=== PATIENT | female | born 1975 | race Caucasian/White ===

== ENCOUNTER → 2017-04-25 | Outpatient (CLI) | payer OTHER ==
[2017-04-25 15:37] VITALS: BP 121/65; PULSE 75; RESP 16; TEMP 98.5; BMI 40.6
[2017-04-25 17:45] LABS: CH 29.1; CHCM 33.9; HCT 45.3 % (34.0-46.0); HDW 2.42; HGB 15.1 gm/dL (11.4-16.0); MCH 28.7 pg (25.0-35.0); MCHC 33.3 g/dL (31.0-37.0); MCV 86.3 fL (80.0-100.0); Mean Platelet Volume 8.5; RBC 5.26 m/uL (3.80-5.40); RDW 13.9 % (11.5-15.5); WBC 9.3 k/uL (3.8-10.6)
[2017-04-25 17:51] LABS: INR 1.1 (<1.2); Partial Thromboplastin Time 23.7 sec (22.0-30.0); Prothrombin Time 10.7 sec (9.0-12.0)
[2017-04-25 17:59] LABS: ALT 75 U/L (9-52); AST 51 U/L (14-36); Alkaline Phosphatase 57 U/L (38-126); Anion Gap 11 mmol/L; Blood Urea Nitrogen 7 mg/dL (7-17); Calcium 9.8 mg/dL (8.4-10.2); Carbon Dioxide 26 mmol/L (22-30); Chloride 104 mmol/L (98-107); Cholesterol 150 mg/dL (<200); Glucose 157 mg/dL (74-99); HDL Cholesterol 42 mg/dL (40-60); Iron 57 ug/dL (37-170); Magnesium 1.7 mg/dL (1.6-2.3); Non-African American GFR(MDRD) >60 (>60 ml/min/1.73 sqM); Phosphorous 4.4 mg/dL (2.5-4.5); Potassium 4.4 mmol/L (3.5-5.1); Sodium 141 mmol/L (137-145); Total Bilirubin 0.6 mg/dL (0.2-1.3); Total Protein 7.6 g/dL (6.3-8.2)
[2017-04-25 18:08] LABS: % Iron Saturation 15.1 % (20-50); Total Iron Binding Capacity 377 ug/dL (265-497)
[2017-04-25 18:46] LABS: Vitamin B12 336 pg/mL (239-931)
--- NOTE | 2017-04-26 08:54 | P.PN ---
Progress Note - Text DATE OF CONSULTATION: 04/26/2017 DATE OF SERVICE: 04/26/2017 CHIEF COMPLAINT: History of complications from adjustable gastric band and cholecystitis. HISTORY OF PRESENT ILLNESS: Annamaria Pham is a 41-year-old female who reports having an adjustable gastric band placed in 2007 at [place]. Her highest weight for her 5 foot 5.5 inch frame was 314 pounds. She was able to get down to 212 pounds. She then followed up at [place] 3 years ago in 2013, and has developed problems. She also reports having a fill in the last 3 years. In the last 1 month, she reports difficulty with drinking fluids. She reports pain at her adjustable gastric port site which has become worse. She now presents with troubles with eating food including dysphagia to solids. Despite previous weight loss her diabetes is now progressed to insulin-dependent within the last 6 months. She has restricted her diet to gluten-free as her child has trouble with food ALLERGIES. She has changed her diet to include vegan as well alongside her daughter. Despite adjustment of her diet, she has regained weight of over 30 pounds. She also reports having obstructive sleep apnea. She has developed worsening right upper quadrant abdominal pain including epigastric abdominal pain. She had additional diagnostic studies demonstrating cholecystitis. She report seeing two separate general surgeons who has declined operating on her she as she is a bariatric patient. Her abdominal pain has now become from moderate to severe. She has developed intractable vomiting. She has gone to the ER several times in the last 1 month. Now she presents for surgical intervention for removal of her gallbladder including her adjustable gastric band from severe complications. PAST MEDICAL HISTORY: 1. Super morbid obesity. 2. Depression. 3. Chronic obstructive pulmonary disease. 4. Hypertension. 5. Panniculitis. 6. Sleep apnea, untreated. 7. Diabetes type 2, insulin-dependent. PAST SURGICAL HISTORY: 1. . 2. Cholecystectomy. MEDICATIONS: 1. Multivitamin. 2. Motrin. 3. Ultram. 4. Effexor. 5. Singulair. 6. Lasix. 7. Vitamin D. 8. Ativan. 9. Amiodarone. ALLERGIES: Denies. SOCIAL HISTORY: No active alcohol use. She is a former tobacco user. FAMILY HISTORY: Pertinent for diabetes including morbid obesity. REVIEW OF SYSTEMS: CONSTITUTIONAL: Highest weight of 314 pounds for a 5'5.5 frame. Lowest weight was 212 pounds after adjustable gastric band. She has 30+ pound weight gain of the last several years. MUSCULOSKELETAL: Bilateral ankle swelling including diffuse joint stiffness and lower back pain. RESPIRATORY: Reports chest pain including shortness of breath. GI: Nausea and vomiting, including pain after fatty greasy foods, including changes in bowel habits and diarrhea. NEUROLOGICAL: Headaches without seizure disorder. ENDOCRINE: Diabetes, now insulin dependent. No reports of thyroid disorders. HEENT: No reports of troubles with vision or wears glasses. LYMPHATIC: The patient denies any lumps and bumps around the neck. CARDIOVASCULAR: Denies any chest pain, palpitations, or recent heart attacks. GENITOURINARY: Denies any blood in urine or increased urinary frequency. PSYCHIATRIC: Denies any depression or suicidal ideation. HEMATOLOGIC: Denies any abnormal bleeding or bruising. BREASTS: Denies any breast lumps, pain or nipple discharge. SKIN: Has chronic panniculitis. No history of skin cancer. PHYSICAL EXAM: Patient is a 41-year-old female. Vital signs: Ht: 5' 5.5", Wt: 248 lbs, BMI 40.7. Vital Signs 04/25/17 15:32 Temperature 98.5 F Pulse Rate 75 Respiratory 16 Rate Blood Pressure 121/65 ABDOMEN: Tenderness noted along the left upper quadrant over adjustable gastric band port. Tenderness along the right upper quadrant. GENERAL: Well developed and in some distress. HEENT: No sclera icterus. Extraocular movements grossly intact. Moist buccal mucosa. Head is atraumatic, normocephalic. Hears conversational speech. No nasal drainage. NECK: Supple without lymphadenopathy. No JV distention. CHEST: Non-labored respirations and equal bilateral excursions. CARDIOVASCULAR: Regular rate and rhythm. Palpable 2+ radial pulses. MUSCULOSKELETAL: No clubbing, cyanosis or edema. NEUROLOGIC: No focal or lateralizing signs. Cranial nerves II-12 grossly within normal limits. PSYCH: Appropriate affect. Alert and oriented to person, place and time. SKIN: Has panniculitis. Well-perfused. EKG is pending. ASSESSMENT: 1. Morbid obesity due to excess calories. 2. BMI 40.7 3. History of adjustable gastric band, now with complications. 4. Elevated liver enzymes. 5. Symptomatic cholelithiasis. 6. Chronic cholecystitis. 7. Hypercholesterolemia. 8. Insulin dependent diabetes type 2. 9. Fibromyalgia. 10. Diffuse osteoarthritis. 11. Panniculitis. PLAN: 1. She reports having dysphagia to liquids, where she may have slippage of her adjustable gastric band or erosion. As her abdominal pain is worsening, urgent surgical intervention band removal is advised. 2. As she reports troubles also with her port and pain, removal of adjustable gastric band and all components is advised. 3. She has elevated liver enzymes and history of cholecystitis, recommend laparoscopic cholecystectomy. 4. DVT prophylaxis. 5. Antibiotics prophylaxis. 6. Start her abdominal pain worsen, emergent removal of her adjustable gastric band alongside her gallbladder is advised. 7. Immediate bariatric metabolic panel also advised. Thank you very much for this kind consultation.
[2017-05-02 18:31] LABS: Selenium 134 mcg/L (63-160)
== END | disposition home or self-care (01) ==
LOC: BARWHC3 14:48
PROVIDERS: ATTEND Surgery Plastic and Reconstructive Surgery
DX: K95.09 Other complications of gastric band procedure (principal); R74.8 Abnormal levels of other serum enzymes; K80.10 Calculus of gallbladder with chronic cholecystitis without obstruction; E78.00 Pure hypercholesterolemia, unspecified; M79.7 Fibromyalgia; M19.90 Unspecified osteoarthritis, unspecified site; M79.3 Panniculitis, unspecified; G47.30 Sleep apnea, unspecified; F32.9 Major depressive disorder, single episode, unspecified; I10 Essential (primary) hypertension; E66.01 Morbid (severe) obesity due to excess calories; Z68.41 Body mass index [BMI] 40.0-44.9, adult; E11.9 Type 2 diabetes mellitus without complications; Z79.4 Long term (current) use of insulin; E21.1 Secondary hyperparathyroidism, not elsewhere classified; E89.1 Postprocedural hypoinsulinemia; D50.8 Other iron deficiency anemias; K90.89 Other intestinal malabsorption; E55.9 Vitamin D deficiency, unspecified; K76.9 Liver disease, unspecified; N19 Unspecified kidney failure; K50.90 Crohn's disease, unspecified, without complications; Z79.1 Long term (current) use of non-steroidal anti-inflammatories (NSAID); Z79.899 Other long term (current) drug therapy
CPT/HCPCS: 80053; 80061; 82306; 82525; 82607; 82728; 82746; 83540; 83550; 83735; 83970; 84100; 84134; 84255; 84425; 84443; 84590; 84630; 85027; 85610; 85730; 99201

== ENCOUNTER 2017-04-27 11:56 | Day surgery (SDC) | payer OTHER ==
[2017-04-26 13:02] VITALS: BMI 39.6
--- NOTE | 2017-04-27 07:51 | P.GSHP ---
History of Present Illness H&P Date: 04/27/17 CHIEF COMPLAINT: History of complications from adjustable gastric band and cholecystitis. HISTORY OF PRESENT ILLNESS: Annamaria Pham is a 41-year-old female who reports having an adjustable gastric band placed in 2007 at [place]. Her highest weight for her 5 foot 5.5 inch frame was 314 pounds. She was able to get down to 212 pounds. She then followed up at [facility] 3 years ago in 2013, and has developed problems. She also reports having a fill in the last 3 years. In the last 1 month, she reports difficulty with drinking fluids. She reports pain at her adjustable gastric port site which has become worse. She now presents with troubles with eating food including dysphagia to solids. Despite previous weight loss her diabetes is now progressed to insulin-dependent within the last 6 months. She has restricted her diet to gluten-free as her child has trouble with food ALLERGIES. She has changed her diet to include vegan as well alongside her daughter. Despite adjustment of her diet, she has regained weight of over 30 pounds. She also reports having obstructive sleep apnea. She has developed worsening right upper quadrant abdominal pain including epigastric abdominal pain. She had additional diagnostic studies demonstrating cholecystitis. She report seeing two separate general surgeons who has declined operating on her she as she is a bariatric patient. Her abdominal pain has now become from moderate to severe. She has developed intractable vomiting. She has gone to the ER several times in the last 1 month. Now she presents for surgical intervention for removal of her gallbladder including her adjustable gastric band from severe complications. PAST MEDICAL HISTORY: 1. Super morbid obesity. 2. Depression. 3. Chronic obstructive pulmonary disease. 4. Hypertension. 5. Panniculitis. 6. Sleep apnea, untreated. 7. Diabetes type 2, insulin-dependent. PAST SURGICAL HISTORY: 1. . 2. Cholecystectomy. MEDICATIONS: 1. Multivitamin. 2. Motrin. 3. Ultram. 4. Effexor. 5. Singulair. 6. Lasix. 7. Vitamin D. 8. Ativan. 9. Amiodarone. ALLERGIES: Denies. SOCIAL HISTORY: No active alcohol use. She is a former tobacco user. FAMILY HISTORY: Pertinent for diabetes including morbid obesity. REVIEW OF SYSTEMS: CONSTITUTIONAL: Highest weight of 314 pounds for a 5'5.5 frame. Lowest weight was 212 pounds after adjustable gastric band. She has 30+ pound weight gain of the last several years. MUSCULOSKELETAL: Bilateral ankle swelling including diffuse joint stiffness and lower back pain. RESPIRATORY: Reports chest pain including shortness of breath. GI: Nausea and vomiting, including pain after fatty greasy foods, including changes in bowel habits and diarrhea. NEUROLOGICAL: Headaches without seizure disorder. ENDOCRINE: Diabetes, now insulin dependent. No reports of thyroid disorders. HEENT: No reports of troubles with vision or wears glasses. LYMPHATIC: The patient denies any lumps and bumps around the neck. CARDIOVASCULAR: Denies any chest pain, palpitations, or recent heart attacks. GENITOURINARY: Denies any blood in urine or increased urinary frequency. PSYCHIATRIC: Denies any depression or suicidal ideation. HEMATOLOGIC: Denies any abnormal bleeding or bruising. BREASTS: Denies any breast lumps, pain or nipple discharge. SKIN: Has chronic panniculitis. No history of skin cancer. PHYSICAL EXAM: Patient is a 41-year-old female. Vital signs: Ht: 5' 5.5", Wt: 248 lbs, BMI 40.7. Stable ABDOMEN: Tenderness noted along the left upper quadrant over adjustable gastric band port. Tenderness along the right upper quadrant. GENERAL: Well developed and in some distress. HEENT: No sclera icterus. Extraocular movements grossly intact. Moist buccal mucosa. Head is atraumatic, normocephalic. Hears conversational speech. No nasal drainage. NECK: Supple without lymphadenopathy. No JV distention. CHEST: Non-labored respirations and equal bilateral excursions. CARDIOVASCULAR: Regular rate and rhythm. Palpable 2+ radial pulses. MUSCULOSKELETAL: No clubbing, cyanosis or edema. NEUROLOGIC: No focal or lateralizing signs. Cranial nerves II-12 grossly within normal limits. PSYCH: Appropriate affect. Alert and oriented to person, place and time. SKIN: Has panniculitis. Well-perfused. EKG is pending. ASSESSMENT: 1. Morbid obesity due to excess calories. 2. BMI 40.7 3. History of adjustable gastric band, now with complications. 4. Elevated liver enzymes. 5. Symptomatic cholelithiasis. 6. Chronic cholecystitis. 7. Hypercholesterolemia. 8. Insulin dependent diabetes type 2. 9. Fibromyalgia. 10. Diffuse osteoarthritis. 11. Panniculitis. PLAN: 1. She reports having dysphagia to liquids, where she may have slippage of her adjustable gastric band or erosion. As her abdominal pain is worsening, urgent surgical intervention band removal is advised. 2. As she reports troubles also with her port and pain, removal of adjustable gastric band and all components is advised. 3. She has elevated liver enzymes and history of cholecystitis, recommend laparoscopic cholecystectomy. 4. DVT prophylaxis. 5. Antibiotics prophylaxis. 6. Robotic-assisted approach reviewed. Past Medical History Past Medical History: COPD, Diabetes Mellitus, Fibromyalgia, Hyperlipidemia, Osteoarthritis (OA) Additional Past Medical History / Comment(s): Fatty liver disease, Arthritis in bilateral hips and knees History of Any Multi-Drug Resistant Organisms: None Reported Past Surgical History: Appendectomy, Bariatric Surgery, Section, Hernia Repair, Hysterectomy, Orthopedic Surgery, Uterine Ablation Additional Past Surgical History / Comment(s): Arthroscopic Left knee x4, Laparoscopies x6 (d/t hx of ovarian cysts, ovarian mass, endometriosis) Bilateral inguinal hernia repair, Bilateral Carpal Tunnel, Bilateral "Diabetic frozen shoulder surgery", Jaw wired d/t fracture in 3 locations. Past Anesthesia/Blood Transfusion Reactions: Postoperative Nausea & Vomiting ( PONV) Additional Past Anesthesia/Blood Transfusion Reaction / Comment(s): States it is hard for her to wake up afterwards. Blood transusion x2 (No reaction reported) Smoking Status: Never smoker - Past Family History Mother Family Medical History: COPD, Diabetes Mellitus, Neurologic Disorder Additional Family Medical History / Comment(s): Early onset Parkinsons Disease Brother(s) Family Medical History: No Reported History Additional Family Medical History / Comment(s): Brothers x 7 (no hx reported) Father History Unknown: Yes Medications and Allergies Home Medications Medication Instructions Recorded Confirmed Type Cholecalciferol (Vitamin D3) 10,000 unit PO Q48H 04/25/17 04/26/17 History [Vitamin D3] Ferrous Sulfate [Iron] 325 mg PO DAILY 04/25/17 04/26/17 History Gabapentin [Neurontin] 600 mg PO TID 04/25/17 04/26/17 History Insulin Degludec [Tresiba 8 unit SQ HS 04/25/17 04/26/17 History Flextouch U-100] Rosuvastatin [Crestor] 10 mg PO HS 04/25/17 04/26/17 History glyBURIDE/METFORMIN HCL 2 tab PO BID 04/25/17 04/26/17 History [Glucovance 2.5-500 mg Tablet] Tiotropium Palisade [Spiriva 1 spray INHALATION DAILY 04/26/17 04/26/17 History Respimat] Allergies Allergy/AdvReac Type Severity Reaction Status Date / Time aspirin Allergy Anaphylaxis Verified 04/26/17 12:53 hydrocodone [From Vicodin] Allergy Rash/Hives Verified 04/26/17 12:53 ibuprofen [From Motrin] Allergy Anaphylaxis Verified 04/26/17 12:53 meperidine [From Demerol] Allergy Rash/Hives Verified 04/26/17 12:53 morphine Allergy Rash/Hives Verified 04/26/17 12:53
[~2017-04-27 11:56] MED LIST: ACETAMINOPHEN IV (For NPO) 1,000 MG in EMPTY BAG 1 BAG IVPB ONE; ACETAMINOPHEN TAB 500 MG TAB PO ONE; CHLORHEXIDINE GLUCONATE 15 ML CUP MUCOUS MEM ONE; DEXAMETHASONE SOD PHOSPHATE 10 MG/ML 1 ML VIAL IV ONE; ENOXAPARIN 40 MG/0.4 ML SYRINGE SQ STA; HEPARIN SODIUM,PORCINE 5,000 UNIT/ML 1 ML VIAL SQ ONE; LACTATED RINGERS 1,000 ML IV SCH; MIDAZOLAM 2 MG/2 ML VIAL IV PRN; ONDANSETRON 4 MG/2 ML VIAL IVP ONE; PANTOPRAZOLE 40 MG/10 ML VIAL IV STA; SCOPOLAMINE 1.5MG/72HR PATCH TRANSDERM ONE; SCOPOLAMINE 1.5MG/72HR PATCH TRANSDERM STA; ceFAZolin 2 GM in SODIUM CHLORIDE 0.9% 100 ML IVPB ONE; ceFAZolin 2 GM in SODIUM CHLORIDE 0.9% 100 ML IVPB STA; fentaNYL (PF) 50 MCG/ML 2 ML AMP IV PRN
[2017-04-27 12:48] LABS: Glucose,Whole Blood 85 mg/dL (75-99)
[2017-04-27 13:05] LABS: Glucose,Whole Blood 113 mg/dL (75-99)
[2017-04-27] MEDS ORDERED: GLYCOPYRROLATE 0.2 MG/ML 2 ML VIAL ONE (13:59)
[2017-04-27] MEDS ORDERED: PROPOFOL 10 MG/ML 20 ML VIAL IV ONE (13:59)
[2017-04-27] MEDS ORDERED: SUCCINYLCHOLINE CHLORIDE VIAL 200 MG/10 ML VIAL IV ONE (13:59)
[2017-04-27] MEDS ORDERED: fentaNYL (PF) 50 MCG/ML 2 ML AMP ONE (13:59)
[2017-04-27] MEDS ORDERED: ROCURONIUM BROMIDE 10 MG/ML 10 ML VIAL IV ONE (13:59)
[2017-04-27] MEDS ORDERED: LIDOCAINE 1% INJ 10MG/ML (20 ML MDV) ONE (13:59)
[2017-04-27] MEDS ORDERED: MIDAZOLAM 2 MG/2 ML VIAL ONE (13:59)
[2017-04-27] MEDS ORDERED: HYDROmorphone (PF) 1 MG/ML ONE (13:59)
[2017-04-27] MEDS ORDERED: NEOSTIGMINE 1 MG/ML 10 ML VIAL ONE (13:59)
[2017-04-27] MEDS ORDERED: BUPIVACAINE-EPI 0.5%-1:200,000 10 ML VIAL SQ ONE (14:26)
[2017-04-27] MEDS ORDERED: LACTATED RINGERS 1,000 ML IV ONE (15:20)
--- NOTE | 2017-04-27 15:44 | P.PCN ---
Date of Procedure: 04/27/17 Preoperative Diagnosis: Complications from adjustable gastric band, cholecystitis, left upper quadrant abdominal pain, right upper quadrant abdominal pain, gastroesophageal reflux disease Postoperative Diagnosis: Same, chronic gastritis Procedure(s) Performed: Laparoscopic removal of adjustable gastric band and all components, laparoscopic cholecystectomy, intraoperative esophagogastroduodenoscopy with biopsies cold forceps Implants: Anesthesia: GETA, local Surgeon: Gemma Duque Estimated Blood Loss (ml): 5 Pathology: other (Gallbladder, antrum) Condition: stable Disposition: floor Indications for Procedure: Operative Findings: No full thickness band erosion into the stomach, chronic gastritis along the stomach, erosive esophagitis LA grade B, Hill grade 3 lower esophageal valve, severe intra-abdominal adhesions greater omentum to anterior abdominal wall involving the umbilicus to the pelvis from previous surgery Description of Procedure:
[2017-04-27] MEDS ORDERED: NALOXONE 0.4 MG/ML 1 ML VIAL IV PRN (15:46)
[2017-04-27] MEDS ORDERED: ACETAMINOPHEN TAB 325 MG TAB PO PRN (15:46)
[2017-04-27 15:53] VITALS: TEMP 97.3
[2017-04-27 16:00] LABS: Glucose,Whole Blood 221 mg/dL (75-99)
[2017-04-27 16:02] VITALS: RESP 16
[2017-04-27] MEDS ORDERED: ONDANSETRON 4 MG/2 ML VIAL IVP ONE (16:12)
[2017-04-27] MEDS ORDERED: ACETAMINOPHEN TAB 325 MG TAB PO ONE (16:48)
[2017-04-27 17:35] VITALS: BP 115/69; PULSE 59
--- NOTE | 2017-05-09 00:18 | P.OP ---
Date of Procedure: 04/27/17 Description of Procedure: Date of Procedure: 04/27/17 SURGEON: KAVITA GATES MD TICKET COUNTER: KATIUSKA WADSWORTH PREOPERATIVE DIAGNOSES: 1. Morbid obesity due to excess calories. 2. Body mass 39.7. 3. History of adjustable gastric band with complications 4. Hypertension. 5. Epigastric abdominal pain. 6. Acute and chronic cholecystitis. 7. Right upper quadrant abdominal pain. 8. Diabetes type 2 poorly controlled. 9. Left upper quadrant abdominal pain. 10. Gastroesophageal reflux disease. POSTOPERATIVE DIAGNOSES: 1. Morbid obesity due to excess calories. 2. Body mass 39.7. 3. History of adjustable gastric band with complications 4. Hypertension. 5. Epigastric abdominal pain. 6. Acute and chronic cholecystitis. 7. Right upper quadrant abdominal pain. 8. Diabetes type 2 poorly controlled. 9. Left upper quadrant abdominal pain. 10. Gastroesophageal reflux disease. 11. Diabetes type 2 poorly controlled. 12. Fatty liver disease with severe hepatomegaly. 13. Gastric slippage. 14. Chronic gastritis. OPERATION: 1. Laparoscopic removal of adjustable gastric band and all components 2. Laparoscopic cholecystectomy 3. Intraoperative esophagogastroduodenoscopy with biopsies cold forceps along antrum. ANESTHESIA: General with local. ESTIMATED BLOOD LOSS: 5 mL SPECIMENS REMOVED: Adjustable gastric band and components and gallbladder. COMPLICATIONS: None. INDICATIONS: The patient is a 41-year-old female who presents with prior history of adjustable gastric band including cholecystitis.. Diagnostic studies were consistent with severe epigastric abdominal pain including the gastric port. Surgical options were described including removal of her band and cholecystectomy. Benefits and risks of the procedure were described. Informed consent was obtained. DESCRIPTION: The patient was brought into the operating room and laid in supine position. Chemical DVT prophylaxis were given. Patient was brought into the operating room, transferred a split-leg table. After general induction, which was uncomplicated, the abdomen was prepped and draped in standard sterile fashion. The abdomen was prepped and draped in standard sterile fashion using ChloraPrep as well as Ioban draping. Prior to incision, a timeout protocol was confirmed with the surgical team regarding patient's name, procedure to be performed, including preoperative medications. A transverse incision was made approximately 21 cm distal to the xiphoid off to the left of the midline. A 0 degree 5 mm trocar entry was performed and entered into the peritoneal cavity. The abdomen was insufflated to 15 mmHg pressure, which she tolerated well. Diagnostic laparoscopy demonstrated severe hepatomegaly and fatty liver disease. The port was palpated at the lateral left costal margin and the band was found underneath the liver. A 15 mm port was placed along the left costal margin. Another 12 mm port was placed along the left lateral abdominal wall at the anterior axillary line. Two 5-mm ports were placed along the right lateral abdominal wall. The patient was placed in steep reverse Trendelenburg position with the right side up. The gallbladder fundus was retracted over the dome of the liver. Severe hepatomegaly was identified adding complexity of the case over 35 minutes. Initial attention was brought to the infundibulum which was gently retracted in the inferior lateral approach. Using a Kittner, the cystic duct including the cystic artery was carefully skeletonized. Using a large clip guest relations manager 2 clips were placed proximally, and 2 clip was placed distally along the cystic duct and then cut. Again care was taken to avoid any injury to the biliary tree as the common bile duct was clearly visualized during this portion of dissection. Next, the cystic artery was clipped twice proximally, once distally and then cauterized. The Sonicision was used to divide cystic structures. Additionally Sonicision was used to mobilize the gallbladder. Electro-Bovie cautery was used to remove the gallbladder from the hepatic fossa without decompression of the gallbladder. Hemostasis was checked and found to be adequate. The gallbladder was removed from the abdominal cavity using an Endo Catch bag and passed off for further pathological analysis. The port was followed with its tubing to the actual band. The gastrohepatic ligament was actually scarred from her prior surgery. The posterior portion of the stomach was prolapsed posteriorly around the ALLERGAN band. Using electro-Bovie cautery, the cicatrix of the port was incised. The band was then freed. The band was unbuckled and cut. The tubing was cut approximately 5 cm distal to the actual adapter. The band was removed in total without injury to the stomach. Hemostasis was excellent. The port was removed from the abdominal cavity via the 15 mm port. Next, attention was brought to the abdominal wall where the lap band port was palpated. An incision was made over the prominence of the port using a #11 blade. Skin was localized with anesthetic. Electro-Bovie cautery was used to enter the capsule around the port. The sutures were cut and the port was removed in total along with the tubing. Diagnostic laparoscopy demonstrated complete removal of all foreign body. I then went to the head of the bed to perform intraoperative esophagogastroduodenoscopy to evaluate for gastritis and any full thickness injury to the stomach. An Olympus gastroscope was passed from the posterior oropharynx down to the esophagus, where the squamocolumnar junction was found LA grade B erosive esophagitis, chronic changes. The stomach was entered and bile reflux was found as aspirated. Chronic gastritis was found along the antrum without gastric ulcers or duodenitis or duodenal ulcers. Retroflexion of the scope confirmed a Hill grade 3 lower esophageal valve. No full-thickness erosion from the prior band was encountered. No blood was found within the stomach. Mild gastritis with identified and cold forceps biopsies obtained along the antrum. The stomach was desufflated. The patient tolerated the procedure well. Again, no evidence of leak was encountered from the removal of the band. Along the left upper quadrant 15 mm port site, Santiago Vizcarra 0 Vicryl sutures were used to close the fascia. I then went back to the patient's bedside after re-scrubbing. All instruments and pneumoperitoneum were evacuated from the abdominal cavity. The port extraction site was hemostatic. The port site was irrigated using normal saline and hydrogen peroxide approximately, 50 mL. The skin was closed in layers using 0-Vicryl for the deep dermis and subcutaneous tissue. The rest of the incisions were reapproximated using 4-0 Monocryl in a subcuticular interrupted fashion. Optifoam dressing was placed over the port extraction site and along the left upper quadrant to decrease risk for surgical site infection. At the end of the procedure, needle, sponge and instrument count was verified correct by the plumbing technician. The patient had tolerated the procedure well. An abdominal binder was placed. The patient was transferred to Postanesthesia Care Unit in stable condition. Postoperative findings were discussed with the patient's family who were pleased with the level of care. FINDINGS: 1. No full thickness band erosion into the stomach 2. Chronic gastritis along the stomach 3. Erosive esophagitis LA grade B 4. Hill grade 3 lower esophageal valve 5. Severe intra-abdominal adhesions greater omentum to anterior abdominal wall involving the umbilicus to the pelvis from previous surgery
== END 2017-04-27 17:56 | disposition home or self-care (01) ==
LOC: OR 11:56
PROVIDERS: ATTEND Surgery Plastic and Reconstructive Surgery
DX: K95.09 Other complications of gastric band procedure (principal); K80.12 Calculus of gallbladder with acute and chronic cholecystitis without obstruction; K29.50 Unspecified chronic gastritis without bleeding; K21.0 Gastro-esophageal reflux disease with esophagitis; K66.0 Peritoneal adhesions (postprocedural) (postinfection); R74.8 Abnormal levels of other serum enzymes; E66.01 Morbid (severe) obesity due to excess calories; Z68.41 Body mass index [BMI] 40.0-44.9, adult; F32.9 Major depressive disorder, single episode, unspecified; E11.9 Type 2 diabetes mellitus without complications; E78.00 Pure hypercholesterolemia, unspecified; M79.7 Fibromyalgia; M19.90 Unspecified osteoarthritis, unspecified site; M79.3 Panniculitis, unspecified; I10 Essential (primary) hypertension; J44.9 Chronic obstructive pulmonary disease, unspecified; G47.30 Sleep apnea, unspecified; K76.0 Fatty (change of) liver, not elsewhere classified; Z79.1 Long term (current) use of non-steroidal anti-inflammatories (NSAID); Z79.891 Long term (current) use of opiate analgesic; Z79.84 Long term (current) use of oral hypoglycemic drugs; Z79.899 Other long term (current) drug therapy; Z79.4 Long term (current) use of insulin; Z87.891 Personal history of nicotine dependence; Z88.6 Allergy status to analgesic agent; Z88.5 Allergy status to narcotic agent
CPT/HCPCS: 43774; 47562; 43239; 86900; 86901; 88304; 88305; 86850; 88342; J2250; J0330; J1100; J2710; J0690; J2405; J2001; J1650; J3010; J1170; J0131; J2704; C9113

== ENCOUNTER → 2017-05-03 | Outpatient (CLI) | payer OTHER ==
--- NOTE | 2017-05-20 16:30 | P.PN ---
Progress Note - Text DATE OF SERVICE: 05/03/2017 CHIEF COMPLAINT: Follow-up band removal. HISTORY OF PRESENT ILLNESS: Annamaria Pham is a 41-year-old female who reports having an adjustable gastric band placed in 2007 at [facility]. Her highest weight for her 5 foot 5.5 inch frame was 314 pounds. She was able to get down to 212 pounds. Upon her last visit 1 week ago, she has lost 5 pounds. She comes in weighing 242 pounds. She has maintained 72 pound weight loss. She is 93 pounds overweight. She has maintained 43% excess weight loss. Body mass index is reduced from 51.6 down to 39.8. She is status post removal of adjustable gastric band as well as cholecystectomy on 04/27/2017. She reports diarrhea. She reports her right upper quadrant pain is completely gone. No reports of jaundice. No reports of fevers or chills. PHYSICAL EXAM: Patient is a 41-year-old female. Vital signs: Ht: 5' 5.5", Wt: 242 lbs, BMI 39.8. ABDOMEN: Incisions are clean dry and intact. No signs of infection. No signs of cellulitis. GENERAL: Well developed and in no acute distress. HEENT: No sclera icterus. Extraocular movements grossly intact. Moist buccal mucosa. Head is atraumatic, normocephalic. Hears conversational speech. No nasal drainage. NECK: Supple without lymphadenopathy. No JV distention. CHEST: Non-labored respirations and equal bilateral excursions. CARDIOVASCULAR: Regular rate and rhythm. Palpable 2+ radial pulses. MUSCULOSKELETAL: No clubbing, cyanosis or edema. NEUROLOGIC: No focal or lateralizing signs. Cranial nerves II-12 grossly within normal limits. PSYCH: Appropriate affect. Alert and oriented to person, place and time. SKIN: Has panniculitis. Well-perfused. Final Pathologic Diagnosis A. GALLBLADDER, CHOLECYSTECTOMY: CHRONIC CHOLECYSTITIS. BENIGN REACTIVE PERICYSTIC LYMPH NODE. B. GASTRIC ANTRUM, BIOPSY: CHRONIC ACTIVE GASTRITIS. IMMUNOPEROXIDASE STAIN POSITIVE FOR HELICOBACTER PYLORI ORGANISMS (CONTROLS APPROPRIATE). ASSESSMENT: 1. Morbid obesity due to excess calories. 2. BMI 40.7 down to 39.8. 3. History of adjustable gastric band, now with complications. 4. Elevated liver enzymes. 5. Symptomatic cholelithiasis. 6. Chronic cholecystitis. 7. Hypercholesterolemia. 8. Insulin dependent diabetes type 2. 9. Fibromyalgia. 10. Diffuse osteoarthritis. 11. Panniculitis. 12. H pyloric gastritis. PLAN: 1. Recommend triple therapy for H. pylori gastritis. 2. May need repeat upper endoscopy upon completion of treatment. 3. She is looking into additional procedure potentially gastric bypass. 4. Recommend zinc supplement for zinc deficiency. Thank you very much for this kind consultation.
== END | disposition home or self-care (01) ==
CPT/HCPCS: 99211

== ENCOUNTER → 2021-09-14 | Outpatient (CLI) | payer MEDICAID, OTHER ==
--- NOTE | 2021-09-14 16:59 | P.HPBAR ---
Bariatric H&P - History & Physicial H&P Date: 09/14/21 History & Physicial: Visit/CC: Patient initial contact: Initial weight: 112.536 kg Initial weight in pounds: Height: Initial BMI: Last weight: Current weight: Current weight in pounds: Current BMI: Ken[place] body weight (based on NIH guidelines): Excess body weight loss: The patient is a 45 year-old F who presents for Bariatric Assessment. DATE OF CONSULTATION: 09/14/2021 CHIEF COMPLAINT: Morbid obesity HISTORY OF PRESENT ILLNESS: Annamaria Pham is a 45-year-old female who reports having an adjustable gastric band placed in 2007 at [facility]. She is 14 years out. She had her band removed. She is looking into the sleeve gastrectomy. Her highest weight is 315 pounds. She has lower back pain, hip pain, knee pain, ankle, foot pain. She has neuropathy. She had quit smoking. She presents in consultation for her morbid obesity. Her highest weight for her 5 foot 5.5 inch frame was 314 pounds. She was able to get down to 212 pounds. She has restricted her diet to gluten-free as her child has trouble with food ALLERGIES. She has changed her diet to include vegan as well alongside her daughter. Despite adjustment of her diet, she has regained weight of over 30 pounds. PAST MEDICAL HISTORY: 1. Morbid obesity due to excess calories, 51.6 2. Depressive disorder 3. Chronic obstructive pulmonary disease. 4. Hypertensive heart disease 5. Panniculitis. 6. Obstructive sleep apnea 7. Diabetes type 2, mellitus. 8. Fibromyalgia 9. Hyperlipidemia 10. Osteoarthritis bilateral knee 11. Osteoarthritis bilateral hips 12. Fatty liver disease 13. Neuropathy 14. Postoperative nausea and vomiting 15. Endometriosis 16. Fatty liver disease PAST SURGICAL HISTORY: 1. Section 2. Cholecystectomy. 3. Lap band placement 4. Lap band removal 5. Left knee arthroscopy 6. Bilateral inguinal hernia repair 7. Laparoscopy 8. Bilateral Carpal Tunnel 9. Shoulder surgery 10. Jaw wired 11. Appendectomy 12. Hysterectomy 13. Uterine Ablation MEDICATIONS: Home Medications Medication Instructions Recorded Confirmed glyBURIDE/METFORMIN HCL 2 tab PO DAILY 04/25/17 11/09/21 [Glucovance 2.5-500 mg Tablet] Dapagliflozin Propanediol [Farxiga] 5 mg PO DAILY 09/15/21 11/09/21 Pregabalin 150 mg PO BID 09/15/21 11/09/21 Tolterodine [Detrol] 2 mg PO BID 09/15/21 11/09/21 Topiramate [Trokendi Xr] 100 mg PO HS 09/15/21 11/09/21 metFORMIN HCL [Glucophage] 1,000 mg PO DAILY 09/15/21 11/09/21 Galcanezumab-Gnlm [Emgality Pen] 120 mg SQ Q30D 10/28/21 11/09/21 Solifenacin Succinate [Vesicare] 5 mg PO DAILY 11/09/21 11/09/21 Previous Rx's Medication Instructions Recorded Omeprazole [PriLOSEC] 40 mg PO DAILY #14 cap 10/31/21 ALLERGIES: Denies. SOCIAL HISTORY: No active alcohol use. She is a tobacco user. She has restricted her diet to gluten-free as her child has trouble with food ALLERGIES. FAMILY HISTORY: Pertinent for diabetes including morbid obesity. REVIEW OF SYSTEMS: CONSTITUTIONAL: Highest weight of 314 pounds for a 5'5.5 frame. Lowest weight was 212 pounds after adjustable gastric band. She has 30+ pound weight gain of the last several years. MUSCULOSKELETAL: Bilateral ankle swelling including diffuse joint stiffness and lower back pain. RESPIRATORY: Reports chest pain including shortness of breath. GI: Nausea and vomiting, including pain after fatty greasy foods, including changes in bowel habits and diarrhea. NEUROLOGICAL: Headaches without seizure disorder. ENDOCRINE: Diabetes, now insulin dependent. No reports of thyroid disorders. HEENT: No reports of troubles with vision or wears glasses. LYMPHATIC: The patient denies any lumps and bumps around the neck. CARDIOVASCULAR: Denies any chest pain, palpitations, or recent heart attacks. GENITOURINARY: Denies any blood in urine or increased urinary frequency. PSYCHIATRIC: Denies any depression or suicidal ideation. HEMATOLOGIC: Denies any abnormal bleeding or bruising. History of blood transfusion. BREASTS: Denies any breast lumps, pain or nipple discharge. SKIN: Has chronic panniculitis. No history of skin cancer. PHYSICAL EXAM: Ht: 5 foot 5.5 inches. Weight: 248 pounds, BMI 39.6. Vital Signs Temp 98.9 F 09/14/21 17:10 Pulse 62 09/14/21 17:10 Resp 16 09/14/21 17:10 BP 125/71 09/14/21 17:10 Pulse Ox GENERAL: Well-developed in no acute distress. HEENT: No scleral icterus. Extraocular movements grossly intact. Hears conversational speech. No nasal drainage. NECK: Supple without lymphadenopathy. CHEST: Nonlabored respirations with equal bilateral excursions. CARDIOVASCULAR: Regular rate and regular rhythm. Distal 2+ pulses. ABDOMEN: Obese, soft, nontender, nondistended. MUSCULOSKELETAL: No clubbing, cyanosis. NEURO: No focal or lateralizing signs. Cranial nerves 2 through 12 grossly within normal limits. PSYCH: Appropriate affect. Alert and oriented to person, place and time. SKIN: Good skin turgor. Well perfused. ASSESSMENT: 1. Morbid obesity due to excess calories, 51.6 2. Depressive disorder 3. Chronic obstructive pulmonary disease. 4. Hypertensive heart disease 5. Panniculitis. 6. Obstructive sleep apnea 7. Diabetes type 2, mellitus. 8. Fibromyalgia 9. Hyperlipidemia 10. Osteoarthritis bilateral knee 11. Osteoarthritis bilateral hips 12. Fatty liver disease 13. Neuropathy 14. Postoperative nausea and vomiting 15. Endometriosis 16. Fatty liver disease PLAN: 1. Surgical options including a band, gastric bypass, sleeve gastrectomy were described in detail. Alternatives such as gastric balloon including duodenal switch were described. 2. The [place] bariatric surgical collaborative data and outcomes calculator were described with surgical options. 3. Recommend a bariatric metabolic panel to evaluate for micro- including macronutrient deficiencies. 4. For history of daytime somnolence, recommend evaluation and treatment for sleep apnea. 5. Dietary surveillance and counseling was reviewed. Increased protein intake over 65 grams daily advised. 6. Will need cardiac risk assessment. 7. Recommend medical risk assessment. 8. Psych assessment per insurance guidelines. 9. Recommend upper endoscopy. 10. Recommend 12-lead EKG. 11. Recommend urine nicotine testing pre-op 12. Recommend urine drug screen 13. She has scar tissue and is looking into sleeve gastrectomy. 14. Recommend colon screen as she is due. 15. She is elevated risk due to multiple co-morbidities. Thank you very much for this kind consultation. Past Medical History Past Medical History: COPD, Diabetes Mellitus, Fibromyalgia, Hyperlipidemia, Osteoarthritis (OA) Additional Past Medical History / Comment(s): Fatty liver disease, Arthritis in bilateral hips and knees History of Any Multi-Drug Resistant Organisms: None Reported Past Surgical History: Appendectomy, Bariatric Surgery, Section, Hernia Repair, Hysterectomy, Orthopedic Surgery, Uterine Ablation Additional Past Surgical History / Comment(s): Arthroscopic Left knee x4, Laparoscopies x6 (d/t hx of ovarian cysts, ovarian mass, endometriosis) Bilat eral inguinal hernia repair, Bilateral Carpal Tunnel, Bilateral "Diabetic frozen shoulder surgery", Jaw wired d/t fracture in 3 locations. Past Anesthesia/Blood Transfusion Reactions: Postoperative Nausea & Vomiting (PONV) Additional Past Anesthesia/Blood Transfusion Reaction / Comm: States it is hard for her to wake up afterwards. Blood transusion x2 (No reaction reported) Past Psychological History: No Psychological Hx Reported Past Alcohol Use History: None Reported Additional Past Alcohol Use History / Comment(s): Quit smoking January 2017 (smoked 1 pack/day) FROM AGE 14 (1989) Past Drug Use History: None Reported - Past Family History Mother Family Medical History: COPD, Diabetes Mellitus, Neurologic Disorder Additional Family Medical History / Comment(s): Early onset Parkinsons Disease Brother(s) Family Medical History: No Reported History Additional Family Medical History / Comment(s): Brothers x 7 (no hx reported) Father History Unknown: Yes Bariatric Checklist Checklist: Plan: Checklist: EGD: 1. Hiatal hernia: 2. H. Pylori: HgbA1c: Vitamin D: Smoking: Never smoker Primary care physician referral: emma pabloprague) Psychiatry clearance: Cardiology clearance: Sleep study: Diet journal: VTE risk score: VTE risk level: Rehab needs at discharge:
[2021-09-14 17:14] VITALS: BP 125/71; PULSE 62; RESP 16; TEMP 98.9; BMI 39.5
== END ==
LOC: BARWHC3 15:24
PROVIDERS: ATTEND Surgery Plastic and Reconstructive Surgery
DX: E66.01 Morbid (severe) obesity due to excess calories (principal); F32.A Depression, unspecified; J44.9 Chronic obstructive pulmonary disease, unspecified; I11.9 Hypertensive heart disease without heart failure; M79.3 Panniculitis, unspecified; G47.33 Obstructive sleep apnea (adult) (pediatric); E11.9 Type 2 diabetes mellitus without complications; M79.7 Fibromyalgia; E78.5 Hyperlipidemia, unspecified; M17.0 Bilateral primary osteoarthritis of knee; M16.0 Bilateral primary osteoarthritis of hip; K76.0 Fatty (change of) liver, not elsewhere classified; G62.9 Polyneuropathy, unspecified; R11.2 Nausea with vomiting, unspecified; N80.9 Endometriosis, unspecified; Z98.84 Bariatric surgery status; Z88.6 Allergy status to analgesic agent; Z88.5 Allergy status to narcotic agent; Z68.39 Body mass index [BMI] 39.0-39.9, adult
CPT/HCPCS: 99203; 99211

== ENCOUNTER 2021-10-31 07:03 | Day surgery (SDC) | payer MEDICAID, OTHER ==
[2021-10-28 08:34] VITALS: BMI 39.1
[~2021-10-31 07:03] MED LIST changes: -ACETAMINOPHEN IV (For NPO) 1,000 MG in EMPTY BAG 1 BAG IVPB ONE; -ACETAMINOPHEN TAB 500 MG TAB PO ONE; -CHLORHEXIDINE GLUCONATE 15 ML CUP MUCOUS MEM ONE; -DEXAMETHASONE SOD PHOSPHATE 10 MG/ML 1 ML VIAL IV ONE; -ENOXAPARIN 40 MG/0.4 ML SYRINGE SQ STA; -HEPARIN SODIUM,PORCINE 5,000 UNIT/ML 1 ML VIAL SQ ONE; +LIDOCAINE 1% (10MG/ML) FOR IV START INTRADERMA PRN; -MIDAZOLAM 2 MG/2 ML VIAL IV PRN; -ONDANSETRON 4 MG/2 ML VIAL IVP ONE; -PANTOPRAZOLE 40 MG/10 ML VIAL IV STA; -SCOPOLAMINE 1.5MG/72HR PATCH TRANSDERM ONE; -SCOPOLAMINE 1.5MG/72HR PATCH TRANSDERM STA; -ceFAZolin 2 GM in SODIUM CHLORIDE 0.9% 100 ML IVPB ONE; -ceFAZolin 2 GM in SODIUM CHLORIDE 0.9% 100 ML IVPB STA; -fentaNYL (PF) 50 MCG/ML 2 ML AMP IV PRN
[2021-10-31 07:33] VITALS: TEMP 97.9
[2021-10-31 07:35] LABS: Glucose,Whole Blood 127 mg/dL (75-99)
[2021-10-31] MEDS ORDERED: PROPOFOL 10 MG/ML 20 ML VIAL IV ONE (07:39)
[2021-10-31] MEDS ORDERED: LIDOCAINE 1% INJ 10MG/ML (20 ML MDV) ONE (07:39)
--- NOTE | 2021-10-31 07:39 | P.GSHP ---
History of Present Illness H&P Date: 10/31/21 CHIEF COMPLAINT: GERD and colon screen HISTORY OF PRESENT ILLNESS: The patient is a 46-year-old female who presents with gastroesophageal reflux disease and need for colon screen. Upper and lower endoscopy were offered for further evaluation and management. PAST MEDICAL HISTORY: Please see list. PAST SURGICAL HISTORY: Please see list. MEDICATIONS: Please see list. ALLERGIES: Please see list. SOCIAL HISTORY: No illicit drug use FAMILY HISTORY: No reports of Crohn disease or ulcerative colitis. REVIEW OF ORGAN SYSTEMS: CONSTITUTIONAL: No reports of fevers or chills. GI: Denies any blood in stools or constipation. PHYSICAL EXAM: VITAL SIGNS: Stable GENERAL: Well-developed pleasant in no acute distress. HEENT: No scleral icterus. Extraocular movements grossly intact. Moist buccal mucosa. NECK: Supple without lymphadenopathy. CHEST: Unlabored respirations. Equal bilateral excursions. CARDIOVASCULAR: Regular rate and rhythm. Distal 2+ pulses. ABDOMEN: Soft, nondistended. MUSCULOSKELETAL: No clubbing, cyanosis, or edema. ASSESSMENT: 1. Gastroesophageal reflux disease 2. Colon screen. PLAN: 1. Recommend proceeding with an upper and lower endoscopy Past Medical History Past Medical History: Asthma, COPD, Diabetes Mellitus, Fibromyalgia, Hyperlipidemia, Osteoarthritis (OA) Additional Past Medical History / Comment(s): Fatty liver disease, Arthritis in bilateral hips and knees, MIGRAINE HEADACHE, ANEMIA History of Any Multi-Drug Resistant Organisms: None Reported Past Surgical History: Appendectomy, Bariatric Surgery, Section, Cholecystectomy, Hernia Repair, Hysterectomy, Orthopedic Surgery, Uterine Ablation Additional Past Surgical History / Comment(s): Arthroscopic Left knee x4, Laparoscopies x6 (d/t hx of ovarian cysts, ovarian mass, endometriosis) Bilateral inguinal hernia repair, Bilateral Carpal Tunnel, Bilateral "Diabetic frozen shoulder surgery", Jaw wired d/t fracture in 3 locations. LAP BAND, LAP BAND REMOVED Past Anesthesia/Blood Transfusion Reactions: Previous Problems w/ Anesthesia, Motion Sickness, Postoperative Nausea & Vomiting (PONV) Additional Past Anesthesia/Blood Transfusion Reaction / Comment(s): States it is hard for her to wake up afterwards. Blood transusion x2 (No reaction reported) Smoking Status: Former smoker - Past Family History Mother Family Medical History: COPD, Diabetes Mellitus, Neurologic Disorder Additional Family Medical History / Comment(s): Early onset Parkinsons Disease Brother(s) Family Medical History: No Reported History Additional Family Medical History / Comment(s): Brothers x 7 (no hx reported) Father History Unknown: Yes Medications and Allergies Home Medications Medication Instructions Recorded Confirmed Type glyBURIDE/METFORMIN HCL 2 tab PO DAILY 04/25/17 10/28/21 History [Glucovance 2.5-500 mg Tablet] Dapagliflozin Propanediol [Farxiga] 5 mg PO DAILY 09/15/21 10/28/21 History Pregabalin 150 mg PO BID 09/15/21 10/28/21 History Tolterodine [Detrol] 2 mg PO BID 09/15/21 10/28/21 History Topiramate [Trokendi Xr] 100 mg PO HS 09/15/21 10/28/21 History metFORMIN HCL [Glucophage] 1,000 mg PO DAILY 09/15/21 10/28/21 History Galcanezumab-Gnlm [Emgality Pen] 120 mg SQ Q30D 10/28/21 10/28/21 History Allergies Allergy/AdvReac Type Severity Reaction Status Date / Time aspirin Allergy Anaphylaxis Verified 10/31/21 07:12 hydrocodone [From Vicodin] Allergy Rash/Hives Verified 10/31/21 07:12 ibuprofen [From Motrin] Allergy Anaphylaxis Verified 10/31/21 07:12 meperidine [From Demerol] Allergy Rash/Hives Verified 10/31/21 07:12 morphine Allergy Rash/Hives Verified 10/31/21 07:12 Surgical - Exam Vital Signs Temp Pulse Resp BP Pulse Ox 97.9 F 72 16 110/64 99 10/31/21 07:25 10/31/21 07:25 10/31/21 07:25 10/31/21 07:25 10/31/21 07:25 Results - Labs Abnormal Lab Results - Last 24 Hours (Table) 10/31/21 Range/Units 07:28 POC Glucose (mg/dL) 127 H (75-99) mg/dL
--- NOTE | 2021-10-31 07:49 | P.PCN ---
Date of Procedure: 10/31/21 Description of Procedure: PREOPERATIVE DIAGNOSIS: Gastroesophageal reflux disease. Morbid obesity. POSTOPERATIVE DIAGNOSIS: Gastritis. Gastric ulcer without bleeding Gastroesophageal reflux disease. Morbid obesity. OPERATION: Esophagogastroduodenoscopy with biopsies along antrum. SURGEON: Gemma Duque MD ANESTHESIA: MAC. INDICATIONS: The patient is a 46-year-old female who presents with reflux disease. Benefits and risks of the procedure were described. Informed consent was obtained. DESCRIPTION: The patient was brought into the endoscopy suite and laid in the left lateral decubitus position. An Olympus gastroscope was passed along the posterior oropharynx down to the distal esophagus where the squamocolumnar junction was encountered at 38 cm from the incisors. The stomach was entered and no bile reflux was found. Additional findings are listed below. Biopsies with cold forceps were obtained of the antrum. The first through third portion of the duodenum was examined and unremarkable. Retroflexion of the scope confirmed Hill grade 2 lower esophageal valve. The squamocolumnar junction demonstrated LA grade B erosive esophagitis. The stomach was desufflated. The patient tolerated the procedure well. FINDINGS: Squamocolumnar junction 38 cm from the incisors. Diaphragmatic hiatus at 38 cm. Hill grade 2 lower esophageal valve. LA grade B erosive esophagitis. No active duodenitis. Chronic gastritis Superficial gastric ulcer less than 4 mm in size along antrum, biopsy RECOMMENDATIONS: 1. Omeprazole 40 mg daily for 2 weeks
--- NOTE | 2021-10-31 08:08 | P.PCN ---
Date of Procedure: 10/31/21 Description of Procedure: PREOPERATIVE DIAGNOSIS: Colonoscopy screening POSTOPERATIVE DIAGNOSIS: Tubular adenoma ascending colon Scattered few diverticulosis Internal hemorrhoids, grade 2 OPERATION: Colonoscopy to the ileocecal valve and appendiceal orifice, cecum Colonoscopy with hot snare polypectomy SURGEON: Gemma Duque MD. ANESTHESIA: MAC. INDICATIONS: The patient is an 46-year-old male who presents for her first colonoscopy. Benefits and risks were described and informed consent was obtained. DESCRIPTION OF PROCEDURE: The patient had undergone Sutab prep. The patient had been brought into the operating room and laid in the left lateral decubitus position. After adequate intravenous sedation, the rectum was examined with 2% lidocaine jelly. The prostate was unremarkable. No external hemorrhoids were encountered. The rectal tone was within normal limits. No lesions were palpated in the rectal vault. An Olympus colonoscope was advanced until the cecum, ileocecal valve and appendiceal orifice were clearly viewed. The prep was excellent. Few scattered diverticulosis were found. Colonic polyps were found and removed. No evidence of focal colitis was found. Retroflexion of the scope demonstrated grade 2 internal hemorrhoids without active bleeding or inflammation. The colon was desufflated. The patient had tolerated the procedure well. Withdrawal time was over 6 minutes. FINDINGS: Aronchick preparation quality scale 1 (1-5) Internal hemorrhoids, grade 2 No external hemorrhoids No arteriovenous malformations. Few scattered diverticulosis Removal of 1 polyp: - Snare polypectomy cm from the anal verge, 8 mm tubulovillous adenoma polyp. No focal colitis. RECOMMENDATIONS: Repeat colonoscopy in 3 years, 2024 Plan - Discharge Summary Discharge Rx Participant: Yes New Discharge Prescriptions: New Omeprazole [PriLOSEC] 40 mg PO DAILY #14 cap Continue glyBURIDE/METFORMIN HCL [Glucovance 2.5-500 mg Tablet] 2 tab PO DAILY Tolterodine [Detrol] 2 mg PO BID Dapagliflozin Propanediol [Farxiga] 5 mg PO DAILY metFORMIN HCL [Glucophage] 1,000 mg PO DAILY Topiramate [Trokendi Xr] 100 mg PO HS Pregabalin 150 mg PO BID Galcanezumab-Gnlm [Emgality Pen] 120 mg SQ Q30D Discharge Medication List glyBURIDE/METFORMIN HCL [Glucovance 2.5-500 mg Tablet] 2 tab PO DAILY 04/25/17 [History] Dapagliflozin Propanediol [Farxiga] 5 mg PO DAILY 09/15/21 [History] Pregabalin 150 mg PO BID 09/15/21 [History] Tolterodine [Detrol] 2 mg PO BID 09/15/21 [History] Topiramate [Trokendi Xr] 100 mg PO HS 09/15/21 [History] metFORMIN HCL [Glucophage] 1,000 mg PO DAILY 09/15/21 [History] Galcanezumab-Gnlm [Emgality Pen] 120 mg SQ Q30D 10/28/21 [History] Omeprazole [PriLOSEC] 40 mg PO DAILY #14 cap 10/31/21 [Rx] Follow up [facility]ment[facility]Ref[facility] [place] [place] [facility] [place] [facility] Patient Instructions/Handouts: Colorectal Polyps (GEN), Diverticulosis Diet (GEN), Diverticulosis (ED), *Surgery [facility] - (Anesthesia) Endoscopy Discharge Instructions Activity/Diet/Wound Care/Special Instructions: Repeat colonoscopy in 3 years2024 Discharge Disposition: HOME SELF-CARE
[2021-10-31 08:27] VITALS: BP 104/63; PULSE 60; RESP 16
== END 2021-10-31 08:55 | disposition home or self-care (01) ==
LOC: ORWHC2ENDO 07:03
PROVIDERS: ATTEND Surgery Plastic and Reconstructive Surgery
DX: Z12.11 Encounter for screening for malignant neoplasm of colon (principal); D12.2 Benign neoplasm of ascending colon; K57.30 Diverticulosis of large intestine without perforation or abscess without bleeding; K64.1 Second degree hemorrhoids; K21.9 Gastro-esophageal reflux disease without esophagitis; K29.50 Unspecified chronic gastritis without bleeding; K22.10 Ulcer of esophagus without bleeding; K25.9 Gastric ulcer, unspecified as acute or chronic, without hemorrhage or perforation; E66.01 Morbid (severe) obesity due to excess calories; Z68.41 Body mass index [BMI] 40.0-44.9, adult; J44.9 Chronic obstructive pulmonary disease, unspecified; E11.9 Type 2 diabetes mellitus without complications; M79.7 Fibromyalgia; E78.5 Hyperlipidemia, unspecified; G43.919 Migraine, unspecified, intractable, without status migrainosus; K76.0 Fatty (change of) liver, not elsewhere classified; M16.0 Bilateral primary osteoarthritis of hip; Z90.49 Acquired absence of other specified parts of digestive tract; Z98.84 Bariatric surgery status; Z98.891 History of uterine scar from previous surgery; Z90.710 Acquired absence of both cervix and uterus; Z98.890 Other specified postprocedural states; Z87.891 Personal history of nicotine dependence; Z83.3 Family history of diabetes mellitus; Z97.2 Presence of dental prosthetic device (complete) (partial); Z82.0 Family history of epilepsy and other diseases of the nervous system; Z79.84 Long term (current) use of oral hypoglycemic drugs; Z79.899 Other long term (current) drug therapy; Z88.6 Allergy status to analgesic agent; Z88.5 Allergy status to narcotic agent
CPT/HCPCS: 88305; 45385; 43239; J2001; J2704

== ENCOUNTER → 2021-11-09 | Outpatient (CLI) | payer MEDICAID, OTHER ==
[2021-11-09 15:02] VITALS: BP 123/77; PULSE 81; RESP 16; TEMP 98; BMI 40.6
--- NOTE | 2021-11-09 15:28 | P.BASOAP ---
Subjective Progress Note Date: 11/09/21 DATE OF CONSULTATION: 11/09/2021 CHIEF COMPLAINT: Morbid obesity HISTORY OF PRESENT ILLNESS: Annamaria Pham is a 45-year-old female who reports having an adjustable gastric band placed in 2007 at [place]. She is 14 years out. She had her band removed. She is smoking. She is now looking into the gastric bypass. She completed upper endoscopy and lower endoscopy. Her highest weight for her 5 foot 5.5 inch frame was 314 pounds. She was able to get down to 212 pounds. Her BMI was 51.6. She was 241 pounds. Today she comes in 247 pounds. She has gained 6 pounds in 2 months. Her lifetime weight loss is 66 pounds. Percent lifetime weight loss of 40%. PAST MEDICAL HISTORY: 1. Morbid obesity due to excess calories, 51.6 2. Depressive disorder 3. Chronic obstructive pulmonary disease. 4. Hypertensive heart disease 5. Panniculitis. 6. Obstructive sleep apnea 7. Diabetes type 2, mellitus. 8. Fibromyalgia 9. Hyperlipidemia 10. Osteoarthritis bilateral knee 11. Osteoarthritis bilateral hips 12. Fatty liver disease 13. Neuropathy 14. Postoperative nausea and vomiting 15. Endometriosis 16. Fatty liver disease PAST SURGICAL HISTORY: 1. Section 2. Cholecystectomy. 3. Lap band placement 4. Lap band removal 5. Left knee arthroscopy 6. Bilateral inguinal hernia repair 7. Laparoscopy 8. Bilateral Carpal Tunnel 9. Shoulder surgery 10. Jaw wired 11. Appendectomy 12. Hysterectomy 13. Uterine Ablation MEDICATIONS: Home Medications Medication Instructions Recorded Confirmed glyBURIDE/METFORMIN HCL 2 tab PO DAILY 04/25/17 11/09/21 [Glucovance 2.5-500 mg Tablet] Dapagliflozin Propanediol [Farxiga] 5 mg PO DAILY 09/15/21 11/09/21 Pregabalin 150 mg PO BID 09/15/21 11/09/21 Tolterodine [Detrol] 2 mg PO BID 09/15/21 11/09/21 Topiramate [Trokendi Xr] 100 mg PO HS 09/15/21 11/09/21 metFORMIN HCL [Glucophage] 1,000 mg PO DAILY 09/15/21 11/09/21 Galcanezumab-Gnlm [Emgality Pen] 120 mg SQ Q30D 10/28/21 11/09/21 Solifenacin Succinate [Vesicare] 5 mg PO DAILY 11/09/21 11/09/21 Previous Rx's Medication Instructions Recorded Omeprazole [PriLOSEC] 40 mg PO DAILY #14 cap 10/31/21 ALLERGIES: Allergies Allergy/AdvReac Type Severity Reaction Status Date / Time aspirin Allergy Anaphylaxis Verified 10/31/21 07:12 hydrocodone [From Vicodin] Allergy Rash/Hives Verified 10/31/21 07:12 ibuprofen [From Motrin] Allergy Anaphylaxis Verified 10/31/21 07:12 meperidine [From Demerol] Allergy Rash/Hives Verified 10/31/21 07:12 morphine Allergy Rash/Hives Verified 10/31/21 07:12 SOCIAL HISTORY: No active alcohol use. She is a tobacco user. She has restricted her diet to gluten-free as her child has trouble with food ALLERGIES. FAMILY HISTORY: Pertinent for diabetes including morbid obesity. REVIEW OF SYSTEMS: CONSTITUTIONAL: Highest weight of 314 pounds for a 5'5.5 frame. Lowest weight was 212 pounds after adjustable gastric band. She has 30+ pound weight gain of the last several years. Body mass index 51.6. MUSCULOSKELETAL: Bilateral ankle swelling including diffuse joint stiffness and lower back pain. RESPIRATORY: Reports chest pain including shortness of breath. GI: Nausea and vomiting, including pain after fatty greasy foods, including changes in bowel habits and diarrhea. NEUROLOGICAL: Headaches without seizure disorder. ENDOCRINE: Diabetes, now insulin dependent. No reports of thyroid disorders. HEENT: No reports of troubles with vision or wears glasses. LYMPHATIC: The patient denies any lumps and bumps around the neck. CARDIOVASCULAR: Denies any chest pain, palpitations, or recent heart attacks. GENITOURINARY: Denies any blood in urine or increased urinary frequency. PSYCHIATRIC: Denies any depression or suicidal ideation. HEMATOLOGIC: Denies any abnormal bleeding or bruising. History of blood transfusion. BREASTS: Denies any breast lumps, pain or nipple discharge. SKIN: Has chronic panniculitis. No history of skin cancer. PHYSICAL EXAM: Ht: 5 foot 5.5 inches. Weight: 247 pounds, BMI 40.6 Vital Signs Temp 98 F 11/09/21 14:57 Pulse 81 11/09/21 14:57 Resp 16 11/09/21 14:57 BP 123/77 11/09/21 14:57 Pulse Ox GENERAL: Well-developed in no acute distress. HEENT: No scleral icterus. Extraocular movements grossly intact. Hears conversational speech. No nasal drainage. NECK: Supple without lymphadenopathy. CHEST: Nonlabored respirations with equal bilateral excursions. CARDIOVASCULAR: Regular rate and regular rhythm. Distal 2+ pulses. ABDOMEN: Obese, soft, nontender, nondistended. MUSCULOSKELETAL: No clubbing, cyanosis. NEURO: No focal or lateralizing signs. Cranial nerves 2 through 12 grossly within normal limits. PSYCH: Appropriate affect. Alert and oriented to person, place and time. SKIN: Good skin turgor. Well perfused. LABS: Zinc and Copper is low. EGD FINDINGS: Squamocolumnar junction 38 cm from the incisors. Diaphragmatic hiatus at 38 cm. Hill grade 2 lower esophageal valve. LA grade B erosive esophagitis. No active duodenitis. Chronic gastritis Superficial gastric ulcer less than 4 mm in size along antrum, biopsy COLON FINDINGS: Aronchick preparation quality scale 1 (1-5) Internal hemorrhoids, grade 2 No external hemorrhoids No arteriovenous malformations. Few scattered diverticulosis Removal of 1 polyp: - Snare polypectomy cm from the anal verge, 8 mm tubulovillous adenoma polyp. No focal colitis. Final Pathologic Diagnosis A. GASTRIC ANTRUM, BIOPSY: Chronic gastritis. Helicobacter pylori organisms are not identified on routine H+E sections. B. ASCENDING COLON, BIOPSY: Tubular adenoma. ASSESSMENT: 1. Morbid obesity due to excess calories, 51.6 2. Depressive disorder 3. Chronic obstructive pulmonary disease. 4. Hypertensive heart disease 5. Panniculitis. 6. Obstructive sleep apnea 7. Diabetes type 2, mellitus. 8. Fibromyalgia 9. Hyperlipidemia 10. Osteoarthritis bilateral knee 11. Osteoarthritis bilateral hips 12. Fatty liver disease 13. Neuropathy 14. Postoperative nausea and vomiting 15. Endometriosis 16. Fatty liver disease 17. Tobacco use disorder. 18. Gastric ulcers 19. Zinc deficiency 20. Copper deficiency. PLAN: 1. She is smoking. Complete tobacco cessation and counseling reviewed including risks with surgery. 2. She is looking into the gastric bypass. She is elevated risk of complications 3. Recommend full bariatric metabolic panel. 4. Recommend EKG with cardiac risk assessment for abnormal EKG. 5. Recommend urine nicotine testing. 6. Recommend urine drug screen. 7. Repeat colonoscopy in 3 years. Objective - Vital Signs Vital signs: Vital Signs Temp 98 F 11/09/21 14:57 Pulse 81 11/09/21 14:57 Resp 16 11/09/21 14:57 BP 123/77 11/09/21 14:57 Pulse Ox Intake & Output 11/08/21 11/09/21 11/09/21 18:59 06:59 18:59 Weight 112.491 kg Assessment/Plan Plan: Date: 11/09/21 Initial Weight: 112.536 kg Initial BMI: 40.6 Current Weight: 112.491 kg Current BMI: 40.6 Type of Surgery: Total Volume in Band: Previous Volume: Volume Removed: Volume Added: Band Size:
[2021-11-14 08:11] LABS: Anabasine Urine 10.2 ng/mL (<2.0)
== END ==
LOC: BARWHC3 14:46
PROVIDERS: ATTEND Surgery Plastic and Reconstructive Surgery
DX: E66.01 Morbid (severe) obesity due to excess calories (principal); Z71.51 Drug abuse counseling and surveillance of drug abuser; F32.A Depression, unspecified; J44.9 Chronic obstructive pulmonary disease, unspecified; I11.9 Hypertensive heart disease without heart failure; M79.3 Panniculitis, unspecified; E11.40 Type 2 diabetes mellitus with diabetic neuropathy, unspecified; M79.7 Fibromyalgia; M17.0 Bilateral primary osteoarthritis of knee; M16.0 Bilateral primary osteoarthritis of hip; K76.0 Fatty (change of) liver, not elsewhere classified; R11.2 Nausea with vomiting, unspecified; N80.9 Endometriosis, unspecified; Z72.0 Tobacco use; E60 Dietary zinc deficiency; K25.9 Gastric ulcer, unspecified as acute or chronic, without hemorrhage or perforation; E61.0 Copper deficiency; Z68.41 Body mass index [BMI] 40.0-44.9, adult; Z88.6 Allergy status to analgesic agent; Z88.5 Allergy status to narcotic agent
CPT/HCPCS: 80323; 80307; 99211; G0482

== ENCOUNTER → 2022-09-21 | Outpatient (CLI) | payer MEDICAID, OTHER ==
--- NOTE | 2022-09-21 16:13 | MR ---
EXAMINATION TYPE: MR brain wo con DATE OF EXAM: 09/21/2022 COMPARISON: NONE HISTORY: Dizziness, shaking hands and head. TECHNIQUE: Multiplanar, multisequence imaging of the brain and brainstem is performed without IV cont rast. FINDINGS: Diffusion weighted images demonstrate no evidence of a recent infarct or other diffusion abnormality. The ventricular system and cisternal spaces are normal in size and appearance. The brain volume is a ge appropriate. There is 6 x 4 mm lesion of T1 hypointensity and T2 hyperintensity could reflect old lacunar infarct posterior left frontal lobe at level of womack radiata axial image 21 versus prominen t Virchow-Wei space. A few punctate foci of T2 hyperintensity are seen throughout the white matter bilaterally. Lesions are nonspecific in appearance and distribution. Midline structures demonstrate empty sella morphology. The craniocervical junction appears within no rmal limits. Normal vascular flow voids are present. The visualized sinuses are clear and the globes are intact. No suspicious opacification of the mastoid air cells. IMPRESSION: Source of dizziness not distinctly identified. Other findings noted as detailed above.
== END | disposition home or self-care (01) ==
LOC: RADMRIMAIN 15:20
PROVIDERS: ATTEND Nurse Practitioner
DX: R42 Dizziness and giddiness (principal)
CPT/HCPCS: 70551

== ENCOUNTER → 2024-04-14 | Outpatient (CLI) | payer BC, OTHER ==
--- NOTE | 2024-04-14 09:18 | FL ---
EXAMINATION TYPE: FL barium swallow DATE OF EXAM: 04/14/2024 CLINICAL INDICATION: 48-year-old female R13.10, unspecified dysphagia. Patient with history of lap ba nd removal 5 years ago. COMPARISON: None Total Fluoroscopy Time: 1 minute 20 seconds Total DAP: 25 mGycm2. 37 images obtained. FINDINGS: The swallowing mechanism is normal and hypopharyngeal anatomy is preserved. The cervical and thoracic portions have a normal course and motility. During continuous swallows, the re is mild patulous appearance to the esophagus and relative mild narrowing at the GE junction. Mucos a is normal and no persistent filling defect is encountered. There is a small fixed hiatal hernia present. Some surgical material noted just below the GE junction . No gastroesophageal reflux could be elicited during the course of the exam. IMPRESSION: 1. Mildly patulous esophagus with mild relative narrowing at the GE junction where there is some domitila cent surgical material. No obstruction or suspicious stricture is seen. The diaphragmatic hiatus may be slightly tight. 2. Small fixed hiatal hernia without gastroesophageal reflux.
== END | disposition home or self-care (01) ==
LOC: RADXRMAIN 08:08
PROVIDERS: ATTEND Surgery Plastic and Reconstructive Surgery
DX: R13.10 Dysphagia, unspecified
CPT/HCPCS: 74220

== ENCOUNTER → 2024-04-30 | Outpatient (CLI) | payer BC ==
[2024-04-30 11:14] LABS: INR 0.9 (<1.2); Partial Thromboplastin Time 23.2 sec (22.0-30.0); Prothrombin Time 10.2 sec (10.0-12.5)
[2024-04-30 15:11] LABS: HCT 41.6 % (37.2-46.3); HGB 13.5 g/dL (12.0-15.0); MCH 28.2 pg (27.0-32.0); MCHC 32.5 g/dL (32.0-37.0); MCV 86.8 FL (80.0-97.0); Mean Platelet Volume 11.9 FL (9.5-12.2); NRBC Per 100 WBC 0 X 10*3/uL (0.00-0.01); Platelet Count 188 X 10*3/uL (140-440); RBC 4.79 X 10*6/uL (4.10-5.20); RDW 14.4 % (11.5-14.5); WBC 7.01 X 10*3/uL (4.50-10.00)
[2024-04-30 15:24] LABS: Prealbumin 24.2 mg/dL (18.0-42.0)
[2024-04-30 15:41] LABS: % Iron Saturation 14.52 (12.00-45.00); ALT 47 U/L (8-44); AST 36 U/L (13-35); Albumin 4.2 g/dL (3.8-4.9); Albumin/Globulin Ratio 1.62 Ratio (1.60-3.17); Alkaline Phosphatase 56 U/L (41-126); BUN/Creat Ratio 15.71 Ratio (12.00-20.00); Calcium 9.3 mg/dL (8.7-10.3); Carbon Dioxide 23.6 mmol/L (21.6-31.8); Chloride 104 mmol/L (96-109); Chol/HDL Ratio 4.29 Ratio; Globulin 2.6 g/dL (1.6-3.3); Glucose 206 mg/dL (70-110); Iron 63 UG/DL (50-170); LDL Cholesterol,Calculated 68.9 mg/dL (0.0-131.0); Magnesium 1.6 mg/dL (1.5-2.4); Phosphorus 3.3 mg/dL (2.4-5.1); Potassium 4.6 mmol/L (3.5-5.5); Sodium 140 mmol/L (135-145); Total Bilirubin 0.4 mg/dL (0.3-1.2); Total Iron Binding Capacity 434 UG/DL (228-460); Total Protein 6.8 g/dL (6.2-8.2)
[2024-05-01 12:04] LABS: Zinc, Serum 86 ug/dL (60-130)
[2024-05-02 06:16] LABS: Vitamin A 46 ug/dL (38-106)
[2024-05-05 07:35] LABS: Vit B1(Thiamine) 64 ug/L (38-122)
[2024-05-06 04:44] LABS: Anabasine Urine 9.1 ng/mL (<2.0)
[2024-05-08 13:41] LABS: Selenium 115 mcg/L (63-160)
== END | disposition home or self-care (01) ==
LOC: LABWHC1 10:23
PROVIDERS: ATTEND Surgery Plastic and Reconstructive Surgery
DX: E66.01 Morbid (severe) obesity due to excess calories
CPT/HCPCS: 36415; 80053; 80061; 80307; 80323; 82306; 82525; 82607; 82728; 82746; 83036; 83540; 83550; 83735; 83970; 84100; 84134; 84255; 84425; 84443; 84590; 84630; 85027; 85610; 85730; 93005

== ENCOUNTER → 2024-05-14 | Outpatient (CLI) | payer BC ==
[2024-05-14 14:50] VITALS: BP 153/85; PULSE 84; RESP 16; TEMP 98.6; BMI 43.2
--- NOTE | 2024-05-14 15:23 | P.BASOAP ---
Subjective Progress Note Date: 05/14/24 She has active smoking. Has scarring from band with residual pouch. Patulous esophagus. She needs bypass. She continues to smoke. Her is a smoker too. She wants weight loss intervention. EGD dilation. Dysphagia. Protein not eaten due to pucking. She is drinking [employer] and meal planning. SHe is not food tracking. Objective - Vital Signs Vital signs: Vital Signs Temp 98.6 F 05/14/24 14:41 Pulse 84 05/14/24 14:41 Resp 16 05/14/24 14:41 BP 153/85 05/14/24 14:41 Pulse Ox FiO2 Intake & Output 05/13/24 05/14/24 05/14/24 18:59 06:59 18:59 Weight 117.934 kg Assessment/Plan Plan: Date: 05/14/24 Initial Weight: 112.536 kg Initial BMI: 41.3 Current Weight: 117.934 kg Current BMI: 43.2 Type of Surgery: Total Volume in Band: Previous Volume: Volume Removed: Volume Added: Band Size:
== END ==
LOC: BARWHC3 14:06
PROVIDERS: ATTEND Surgery Plastic and Reconstructive Surgery
DX: E66.01 Morbid (severe) obesity due to excess calories (principal); R13.10 Dysphagia, unspecified; Z88.6 Allergy status to analgesic agent; Z88.8 Allergy status to other drugs, medicaments and biological substances; Z88.5 Allergy status to narcotic agent; Z68.41 Body mass index [BMI] 40.0-44.9, adult
CPT/HCPCS: 99211